=== PATIENT | female | born 1960 | race Caucasian/White ===

== ENCOUNTER → 2021-10-04 10:07 | Outpatient (CLI) | payer OTHER, SELFPAY ==
--- NOTE | ~2021-10-04 | MR_ITS ---
EXAMINATION: MR lumbar spine wo con DATE: 10/04/2021 10:32 INDICATION: Radiculopathy . TECHNIQUE: Magnetic resonance imaging (MRI) of the lumbar spine was performed without intravenous con trast. Sequences included sagittal T2-weighted FSE, sagittal T2-weighted FS FSE, sagittal T1-weighted FSE, and axial T2-weighted FSE. COMPARISON: None FINDINGS: The last fully formed and hydrated disc is designated L5-S1. Reactive marrow changes in the L4 and L5, without masslike or infiltrative signal change. Conus terminates at L1-2. Multilevel disc dehydration and height loss. The following disc levels are specifically discussed: T11-T12: The disc does not extend beyond the endplate margin. There is no facet joint osteoarthritis. There is no neural foraminal stenosis. There is no central canal stenosis. T12-L1: The disc does not extend beyond the endplate margin. There is mild facet joint osteoarthritis . There is no neural foraminal stenosis. There is no central canal stenosis. L1-L2: Mild diffuse bulge. There is moderate facet joint osteoarthritis. There is no neural foraminal stenosis. There is mild central canal stenosis. L2-L3: Large diffuse bulge. There is moderate facet joint osteoarthritis. There is mild neural forami nal stenosis. There is moderate central canal stenosis. L3-L4: Moderate diffuse bulge. There is severe facet joint osteoarthritis. There is moderate right an d mild left neural foraminal stenosis. There is severe central canal stenosis. L4-L5: Large diffuse bulge. There is severe facet joint osteoarthritis. There is moderate right and s evere left neural foraminal stenosis. There is severe central canal stenosis. L5-S1: Moderate diffuse bulge. There is moderate facet joint osteoarthritis including an anterior dir ected synovial cyst off the left facet. There is mild right and moderate left neural foraminal stenos is. There is no central canal stenosis. IMPRESSION: 1. Severe central canal narrowing and facet arthropathy at L3-4 and L4-5. 2. Severe left L4-5 neural foraminal narrowing. 3. Additional multilevel mild and moderate degrees of degenerative disc change, facet arthropathy, ce ntral canal stenosis, and neural foraminal narrowing described above. Reviewed, dictated and finalized at location K. IMPRESSION: 1. Severe central canal narrowing and facet arthropathy at L3-4 and L4-5. 2. Severe left L4-5 neural foraminal narrowing. 3. Additional multilevel mild and moderate degrees of degenerative disc change, facet arthropathy, central canal stenosis, and neural foraminal narrowing desc ribed above.
== END ==
PROVIDERS: PCP Family Medicine; Visit Provider Nurse Practitioner Family
DX: M54.16 Radiculopathy, lumbar region (principal)
CPT/HCPCS: 72148